=== PATIENT | male | born 1930 | race Caucasian/White ===

== ENCOUNTER → 2017-02-28 | Outpatient (CLI) | payer OTHER ==
[~2017-02-28] VITALS: Ht 170.2 cm; Wt 74.8 kg
[~2017-02-28] MED LIST: APAP500 PO; ARICEPT10 MG PO; HYDROCODONE-APA1 TA1 PO; KEFLEX500 MG PO; LEVOTHYROXINE 0.1 MG PO; MOBIC7.5 M1 PO; MOBIC7.5 MG PO; TERAZOSIN HCL10 MG PO; THYROXINE PO; TOVIAZ4 M1 PO; ULTRAM50 MG PO
--- NOTE | ~2017-02-28 | HPC ---
[facility] [address] [place] [address] PAIN MANAGEMENT CONSULTATION Name: GRACIELA ROSENTHAL Room #: REG FLEX [facility]iz#: [id number] Admission: 02/28/17 Attend Phys: Shilo Saab DO Discharge: Date of : [birth year] Report #: [id number] THIS REPORT FOR: //name// CC: SANDY Mccarty MD DATE OF SERVICE: 02/28/2017 REFERRING PHYSICIAN: Sandy Miguel M.D. CHIEF COMPLAINT: Low back pain, left lower extremity pain with paresthesias. HISTORY OF PRESENT ILLNESS: As you know, the patient is an 86-year-old male who was followed by [facility] in the past for lumbar radiculopathy. The patient had undergone epidural injections under fluoroscopic guidance, which originally providing good analgesic benefit, but ultimately lost efficacy. He subsequently underwent surgery with Dr. Theo Miguel. He had been doing well until just recently where he had a slow and progressive return of his typical lumbar radicular symptoms radiating down the left leg, not dissimilar to symptoms he had prior to surgery. He denies injury or trauma. He indicates he was doing well until his pain began to return and spontaneously. He has been sent back to our clinic to discuss treatment options from a pain management standpoint. ALLERGIES: No known drug allergies. CURRENT MEDICATIONS: Aricept 10 mg once a day, hydrocodone 7.5/325 one tab q.6 hours p.r.n. for pain, levothyroxine 100 mcg per day, terazosin 10 mg per day. SOCIAL HISTORY: The patient denies tobacco, alcohol, IV or illicit drug use. He is retired, retired years ago, accompanied by his who is providing the vast majority of the patient's history. IMAGING: MRI of the lumbar spine obtained on 02/27/2017 shows left laminectomy at L4-L5, lesser degree of spinal stenosis at this level, although persistent severe right lateral recess stenosis, moderate left lateral recess stenosis, [id number]-[id number] spinal stenosis at L3-L4, there is also noted foraminal stenosis and compromise at L3-L4, L1-L2 and T12-L1. There is multilevel abnormal alignment, multilevel facet degenerative changes, multilevel degenerative disk disease. PHYSICAL EXAMINATION: VITAL SIGNS: Blood pressure 101/57, pulse 74, respiratory rate 16, unlabored. The patient is 97% on room air, height 5 feet 7 inches tall, weight 164.8 [place] [address] PAIN MANAGEMENT CONSULTATION Name: GRACIELA ROSENTHAL Room #: REG [facility]#: [id number] Admission: 02/28/17 Attend Phys: Shilo Saab DO Discharge: Date of : [birth year] Report #: [id number] pounds, BMI calculated 25.8. GENERAL: Well developed, well nourished, well hydrated 86-year-old male appearing his stated age, he is placing current pain score around 3/10. HEENT: Normocephalic, atraumatic. Pupils equal, round, reactive to light. Speech is fluent. The patient has difficulty with cognition. EXTREMITIES: Showed no clubbing, no cyanosis, no edema. MUSCULOSKELETAL: Seated straight leg raising negative. Supine straight leg raising positive on the left. Fide test negative. Modified Gaenslen's positive for axial low back pain. Gait is antalgic favoring left lower extremity over right. Muscle bulk and tone equal and symmetrical, though there is weakness noted with plantar flexion, dorsiflexion of the left foot when compared to the right. ASSESSMENT: 1. Low symptomatic lumbar radiculopathy. 2. Spinal stenosis of the lumbar spine. 3. Displacement of lumbar intervertebral disk with radiculopathy. 4. Lumbosacral spondylosis with radiculopathy. 5. Chronic intractable pain. PLAN: 1. The patient has returned today in followup visit indicating he had done very well from a post-surgical standpoint for nearly a year. Unfortunately, he has had a slow and progressive return of symptoms. He denies injury or trauma. He indicates pain is in the same distribution in the same level of discomfort that he had prior. He returns today in followup visit per the request of his primary care physician and his neurosurgeon to undergo epidural injection under fluoroscopic guidance to determine if his symptoms might be improved with this type of procedure. He has been advised risks and benefits of the procedure. These risks include, but are not necessarily limited to bleeding, bruising, infection, worsening pain, no relief of pain, also risk of temporary or permanent muscle weakness, temporary or permanent nerve damage, possible paralysis and . The patient states understood and wished to proceed. 2. The patient and I did discuss at length today, possible alternative treatments. This would include medical therapy, spinal cord stimulator for which the patient was given information about the device today and surgical options. The patient is hopeful the epidural injection will provide improvement in symptoms, but will consider options such as medication management, spinal cord stimulator and surgical options if necessary. The patient will review the information about the spinal cord stimulator over the next couple of weeks. He will contact our clinic if he is interested in moving forward with this trial procedure. PROCEDURE NOTE DESCRIPTION OF PROCEDURE: Lumbar epidural steroid injection under fluoroscopic [address] [address] PAIN MANAGEMENT CONSULTATION Name: GRACIELA ROSENTHAL Room #: REG [facility]#: [id number] Admission: 02/28/17 Attend Phys: Shilo Saab DO Discharge: Date of : [birth year] Report #: [id number] guidance. This is the first procedure of the third series that the patient is undergoing. After obtaining written consent, the patient was taken back to the fluoroscopy suite, placed in a prone position with pillow under the abdomen to decrease lumbar lordosis. The skin overlying the lumbosacral area was then prepped and draped in aseptic fashion. The lumbar vertebral interspace was then identified by AP fluoroscopy. The skin and subcutaneous tissue overlying the target site of injection was anesthetized with 3 mL 1% lidocaine. A 20-gauge 3-1/2 inch Tuohy needle was then advanced under fluoroscopic guidance towards the epidural space using a left paramedian approach. The epidural space was identified using loss of resistance to air technique. After negative aspiration for heme or cerebrospinal fluid, a total of 1 mL of Omnipaque was injected. A lumbar epidurogram was confirmed using both AP and lateral fluoroscopy. After negative aspiration for heme or cerebrospinal fluid, 5 mL of a solution containing 2 mL 40 mg per mL 80 mg total triamcinolone, 3 mL of lidocaine 1 % was injected in increments. Contrast spread was noted post epidural space. The needle was then retracted approximately half way and needle tract flushed with 1 mL of 1% of lidocaine. Needle was then removed. There were no apparent sensory or motor deficits in the lower extremity following the procedure. A sterile bandage was placed over the injection site. The heart rate, pulse, oximetry and blood pressure were continuously monitored after the procedure. There were no apparent complications. The patient tolerated the procedure well and was carefully escorted to the recovery room in stable condition. There were no apparent complications. After meeting discharge criteria, the patient was then discharged home. By: [id number] Shilo Saab DO /nt
[2017-02-28 09:01] VITALS: BP 101/57
== END | disposition home or self-care (01) ==
LOC: PAIN 06:51
DX: M54.16 Radiculopathy, lumbar region (principal); Z98.890 Other specified postprocedural states; M48.06 Spinal stenosis, lumbar region; M51.16 Intervertebral disc disorders with radiculopathy, lumbar region; G89.29 Other chronic pain; Z87.891 Personal history of nicotine dependence

== ENCOUNTER → 2017-08-17 | Outpatient (CLI) | payer OTHER ==
[~2017-08-17] VITALS: Ht 170.2 cm; Wt 72.6 kg
[~2017-08-17] MED LIST changes: +CENTRUM SILVER1 EAC4 PO; +MYRBETRIQ50 MG PO
--- NOTE | ~2017-08-17 | P ---
[facility] [place] [address] PROCEDURE REPORT Name: GRACIELA ROSENTHAL Room #: REG [facility]#: [id number] Admission: 08/17/17 Attend Phys: Hermilo Stephenson MD Discharge: Date of : [birth year] Report #: [id number] THIS REPORT FOR: //name// CC: Hermilo Stephenson BRIEF HISTORY: The patient is an 87-year-old male with change in bowel habits and diarrhea. PREOPERATIVE DIAGNOSES: Change in bowel habits and diarrhea. POSTOPERATIVE DIAGNOSES: 1. Moderately severe sigmoid diverticulosis coli. 2. Hemorrhoidal anal tags. 3. Normal colonic mucosa. 4. Normal distal terminal ileum. MEDICATIONS: Deep sedation with propofol per anesthesia. SPECIMENS: 1. Biopsies, proximal colon, rule out colitis. 2. Biopsies, distal colon and rectum, rule out colitis. ESTIMATED BLOOD LOSS: 3 mL. PROCEDURE: Colonoscopy to cecum and terminal ileum with biopsy. FINDINGS: Prior to propofol sedation, the procedure of colonoscopy discussed with the patient as well as potential risks, benefits, and complications. He indicates he understands and desires to proceed. With the patient in left lateral decubitus position, digital examination was completed, which revealed a prominent prostate without any masses or nodules. Subsequently, the BESOS video colonoscope was introduced into the rectum and advanced under direct vision to the cecum. This was done with minimal difficulty. The cecum was identified by the ileocecal valve and the appendiceal orifice. I was able to visualize the distal 10-15 cm of the terminal ileum, which was noted to be normal. No ulcers or inflammatory changes were seen. At that point, the scope was slowly withdrawn and careful circumferential views obtained including retroflexion of the scope in the ascending colon. Upon slow withdrawal of the scope, the prep was noted to be excellent. The mucosa was within normal limits, normal vascular pattern, normal light reflex. As we withdrew the scope, the mucosa was normal throughout. Multiple random biopsies were taken. No inflammatory or neoplastic lesions were seen. In the sigmoid colon, there was moderately severe diverticular disease without endoscopic evidence of diverticulitis. The scope was withdrawn in the rectum. Upon [facility] [address] [place] [address] PROCEDURE REPORT Name: GALOGRACIELA Armin [id number] Admission: 08/17/17 Attend Phys: Hermilo Stephenson MD Discharge: Date of : [birth year] Report #: [id number] retroflexion, small anal tags were seen. Significant hemorrhoids were not seen today. Scope was withdrawn. The patient tolerated the procedure well. CONDITION OF THE PATIENT UPON DISCHARGE: Following procedure, the patient drowsy, aroused, conversant and will be discharged home when fully ambulatory. INSTRUCTIONS TO THE PATIENT AND FAMILY AT THE TIME OF DISCHARGE: The patient with change in bowel habits, in particular diarrhea recently. 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 We will follow up on biopsies obtained today. If he does indeed have evidence of microscopic colitis, he may benefit from treatment, potentially from budesonide or other agents such as cholestyramine or even Imodium. He will return to the care of Dr. Hermilo Mccarty and return to see me as needed. Withdrawal time from the cecum was 12 minutes. By: [id number] Hermilo Stephenson MD /nt
--- NOTE | ~2017-08-17 | S ---
[facility] [address] [place] [address] SURGICAL PATH RPT PROCEDURE Name: GRACIELA ROSENTHAL Room #: REG FLEX [facility]#: [id number] Admission: 08/17/17 Date of : [birth year] Discharge: Report #: [id number] Path Case #: [id number] PATHOLOGY REPORT DRAFT COLLECTION DATE: 08/17/2017 RECEIVED DATE: 08/18/2017 SPECIMEN(S) RECEIVED: A.Proximal colon biopsies B.Distal colon and rectum
== END | disposition home or self-care (01) ==
LOC: GI 08:31
DX: K57.30 Diverticulosis of large intestine without perforation or abscess without bleeding (principal); K64.4 Residual hemorrhoidal skin tags; E03.9 Hypothyroidism, unspecified; G47.33 Obstructive sleep apnea (adult) (pediatric); F03.90 Unspecified dementia, unspecified severity, without behavioral disturbance, psychotic disturbance, mood disturbance, and anxiety; Z87.891 Personal history of nicotine dependence; Z98.41 Cataract extraction status, right eye; Z98.42 Cataract extraction status, left eye; Z98.890 Other specified postprocedural states; Z79.899 Other long term (current) drug therapy
CPT/HCPCS: 62110; 62900